=== PATIENT | female | born 1990 | race Caucasian/White ===

== ENCOUNTER 2019-01-10 12:36 | Emergency (ER) | payer MEDICAID ==
[~2019-01-10] VITALS: Ht 167.6 cm; Wt 53.5 kg
--- NOTE | 2019-01-10 12:36 | NUR ---
Patient BIBA BLS, transferred to bed 10. RN evaluating patient at bedside.
[2019-01-10 12:46] VITALS: BP 106/70
--- NOTE | 2019-01-10 13:10 | NUR ---
JACINTA C/O HAD SYNCOPE EPISODE WHILE AWAITING IN THE LINE IN [place]. PER LETTER OF CREDIT DOCUMENT EXAMINER, PT WAS PASSED OUT FOR ONE MINUTE AND WOKE UP ON THE FLOOR. PT DOES NOT REMEMBER WHETHER SHE HIT HER HEAD, BUT SHE REPORTS HAVING 12-WEEKS OF . A0. KELLI: 08/02/2019 PT DENIES HAVING ANY PAIN AT THIS TIME, BUT FEELS SHAKING. PT STATES HAVING TEMPORAL FAUST AT THIS TIME. PAIN LAEVEL 09/30. VSS; PATIENT POSITIONED FOR COMFORT; HOB ELEVATED; BEDRAILS UP X1; BED DOWN. ER MD MADE AWARE OF PT STATUS.
[2019-01-10] MEDS ORDERED: NACL 0.9% 1,000 ML IV SCH (13:51)
[2019-01-10 14:18] LABS: BASOPHILS % (AUTO) 0.3 % (0.0-2.0); EOSINOPHILS % (AUTO) 0.4 % (0.0-4.0); HEMATOCRIT 34.4 % (36-48); HEMOGLOBIN 11.4 g/dL (12.0-16.0); LYMPHOCYTES % (AUTO) 11.6 % (20.5-51.1); MEAN CORPUSCULAR HEMOGLOBIN 30 pg (27-31); MEAN CORPUSCULAR HGB CONC 33 g/dL (33-37); MEAN CORPUSCULAR VOLUME 89.3 fL (80-94); MONOCYTES # (AUTO) 0.5 K/uL (0.8-1.0); MONOCYTES % (AUTO) 5.8 % (1.7-9.3); NEUTROPHILS # (AUTO) 7.4 K/uL (1.8-7.7); NEUTROPHILS % (AUTO) 81.9 % (42.2-75.2); PLATELET COUNT (AUTO) 226 K/uL (140-450); RED BLOOD CELL COUNT(AUTO) 3.85 MIL/uL (4.20-5.40); RED CELL DISTRIBUTION WIDTH 16.8 % (11.6-13.7)
[2019-01-10 14:30] LABS: ANION GAP 16.5 (8-16); CARBON DIOXIDE 22.3 mmol/L (21-32); CREATININE 0.4 mg/dL (0.6-1.3); POTASSIUM 3.8 mmol/L (3.5-5.1)
--- NOTE | 2019-01-10 14:30 | NUR ---
PATIENT IS RESTING IN BED, STATED FEELING BETTER NOW, DENIES PAIN, VSS, IV BOLUS STARTED, WILL COTINUE TO MONITOR.
[2019-01-10 14:35] LABS: ALBUMIN 3.5 g/dL (3.4-5.0)
[2019-01-10 14:50] LABS: TOTAL BILIRUBIN 0.3 mg/dL (0.0-1.0)
--- NOTE | 2019-01-10 15:15 | NUR ---
BOLUS COMPLETED, PT STATED HUNGRY, SNAKES OFFERED, DENIES PAIN, AT BEDSIDE.
--- NOTE | 2019-01-10 16:00 | NUR ---
PT IS RESTING IN BED, NO S/S OF DISTRESS, AT BEDSIDE, DENIES PAIN, VSS.
[2019-01-10 17:00] VITALS: BP 112/72
--- NOTE | 2019-01-10 17:00 | NUR ---
Patient STATED FEELING BETTER READY TO BE DISCHARGE TO HOME. Written and verbal after care instructions given and explained. Rx of PYRIDOXINE given. Patient educated on indication of medication including possible reaction and side effects. All questions addressed prior to discharge. ID band removed. IV SITE REMOVED, Patient advised to follow up with PMD.
[2019-01-10 22:32] LABS: APPEARANCE,URINE CLEAR (CLEAR); BILIRUBIN,URINE NEGATIVE (NEGATIVE); BLOOD, URINE NEGATIVE (NEGATIVE); COLOR,URINE YELLOW (YELLOW); LEUKOCYTE ESTERASE ,URINE NEGATIVE (NEGATIVE); NITRITE, URINE NEGATIVE (NEGATIVE); UGLUCOSE NEGATIVE (NEGATIVE)
== END 2019-01-10 17:00 | disposition home or self-care (01) ==
LOC: MED 12:36
DX: O99.351 Diseases of the nervous system complicating pregnancy, first trimester (principal); R55 Syncope and collapse; R51 Headache; Z3A.10 10 weeks gestation of pregnancy
CPT/HCPCS: 36415; 76801; 80053; 81003; 81025; 82150; 83690; 84702; 85025; 93005; 96360; 99284; J7030; Q0092

== ENCOUNTER 2019-01-23 10:07 | Emergency (ER) | payer MEDICAID ==
[~2019-01-23] VITALS: Ht 170.2 cm; Wt 52.7 kg
--- NOTE | 2019-01-23 10:12 | NUR ---
Dr. Ramon evaluating patient in triage room.
[2019-01-23 10:14] VITALS: BP 117/9
--- NOTE | 2019-01-23 10:14 | NUR ---
Patient ambulated to bed 8. RN evaluating patient at bedside.
--- NOTE | 2019-01-23 10:17 | NUR ---
URINE CUP HANDED TO PT FOR SAMPLE
--- NOTE | 2019-01-23 10:22 | NUR ---
28 Y/O F PRESENTS TO ER C/O HEADACHE X 3 DAYS. PT IS 14 WEEKS . RECEIVING CARE. - VAGINAL BLEEDING +WHITE/YELLOWISH DISCHARGE. PT TOOK TYLENOL YESTERDAY AFTEROON WITHOUT ANY RELIEF. PAIN LEVEL 8/10, PULSATING. DENIES ANY CHANGES IN VISION. HOB ELEVATED, BED IN LOWEST POSITION, BED RAIL UP X1. WAITING FOR ERMD TO EVALUATE PT. ALLERGIES: NKA MED HX: NONE
[2019-01-23] MEDS ORDERED: NACL 0.9% 1,000 ML IV ONE ×2 (10:30→11:55)
--- NOTE | 2019-01-23 10:48 | NUR ---
PT STATES SHES FEELING NAUSEA. PT DID NOT TAKE ANY RX PRESCRIPTIONS FOR NAUSEA TODAY. CHASTITYD MADE AWARE.
[2019-01-23] MEDS ORDERED: ONDANSETRON 4 MG/2 ML VIAL IVP ONE (10:50)
[2019-01-23 10:53] LABS: BASOPHILS % (AUTO) 0.3 % (0.0-2.0); EOSINOPHILS % (AUTO) 0.3 % (0.0-4.0); HEMATOCRIT 37.4 % (36-48); HEMOGLOBIN 12.1 g/dL (12.0-16.0); LYMPHOCYTES # (AUTO) 1.4 K/uL (2.5-16.5); LYMPHOCYTES % (AUTO) 19.5 % (20.5-51.1); MEAN CORPUSCULAR HEMOGLOBIN 29 pg (27-31); MEAN CORPUSCULAR HGB CONC 32 g/dL (33-37); MEAN CORPUSCULAR VOLUME 88.6 fL (80-94); MONOCYTES # (AUTO) 0.4 K/uL (0.8-1.0); MONOCYTES % (AUTO) 5.1 % (1.7-9.3); NEUTROPHILS # (AUTO) 5.6 K/uL (1.8-7.7); NEUTROPHILS % (AUTO) 74.8 % (42.2-75.2); PLATELET COUNT (AUTO) 257 K/uL (140-450); RED BLOOD CELL COUNT(AUTO) 4.22 MIL/uL (4.20-5.40); RED CELL DISTRIBUTION WIDTH 16.3 % (11.6-13.7); WHITE BLOOD COUNT (AUTO) 7.4 K/uL (4.8-10.8)
--- NOTE | 2019-01-23 10:54 | NUR ---
Dr. Skinner is evaluating the patient at bedside.
[2019-01-23 10:59] LABS: ANION GAP 15.3 (8-16); CARBON DIOXIDE 25.3 mmol/L (21-32); CREATININE 0.5 mg/dL (0.6-1.3); POTASSIUM 3.6 mmol/L (3.5-5.1)
[2019-01-23 11:00] LABS: APPEARANCE,URINE CLEAR (CLEAR); BILIRUBIN,URINE NEGATIVE (NEGATIVE); BLOOD, URINE NEGATIVE (NEGATIVE); COLOR,URINE YELLOW (YELLOW); LEUKOCYTE ESTERASE ,URINE NEGATIVE (NEGATIVE); NITRITE, URINE NEGATIVE (NEGATIVE); UGLUCOSE NEGATIVE (NEGATIVE)
[2019-01-23 11:05] LABS: ALBUMIN 3.8 g/dL (3.4-5.0); TOTAL BILIRUBIN 0.3 mg/dL (0.0-1.0)
--- NOTE | 2019-01-23 11:50 | NUR ---
PT NAUSEA DECREASED. HEADACHE PAIN LEVEL STILL 8/10. DR. BRANDT MADE AWARE.
--- NOTE | 2019-01-23 11:53 | NUR ---
PT AMBULATED TO RESTROOM
[2019-01-23] MEDS ORDERED: ACETAMINOPHEN EXTRA STRENGTH 500 MG TAB PO ONE (11:55)
--- NOTE | 2019-01-23 12:38 | NUR ---
PT STATES PAIN RELIEF, PAIN LEVEL DECREASED TO LEVEL 6/10
--- NOTE | 2019-01-23 13:09 | NUR ---
PT AMBULATED TO RESTROOM
[2019-01-23 14:44] VITALS: BP 117/69
--- NOTE | 2019-01-23 14:44 | NUR ---
Patient discharged with v/s stable. Written and verbal after care instructions given and explained. Patient verbalized understanding. Ambulatory with steady gait. All questions addressed prior to discharge. Advised to follow up with PMD.
== END 2019-01-23 14:44 | disposition home or self-care (01) ==
LOC: MED 10:07
DX: R11.2 Nausea with vomiting, unspecified (principal); R51 Headache
CPT/HCPCS: 36415; 80053; 81003; 85025; 96361; 96374; 99283; J2405; J7030

== ENCOUNTER 2019-07-20 22:04 | Inpatient (IN) | payer MEDICAID ==
[~2019-07-20] VITALS: Ht 167.6 cm; Wt 68.0 kg
[2019-07-20] MEDS ORDERED: CARBOPROST 250 MCG/ML AMP IM PRN (22:55)
[2019-07-20] MEDS ORDERED: METHYLERGONOVINE 0.2 MG/ML AMP IM PRN (22:55)
[2019-07-20] MEDS ORDERED: PREN-380 PO (23:02)
[2019-07-20 23:22] LABS: BASOPHILS # (AUTO) 0.1 K/uL (0.00-0.22); BASOPHILS % (AUTO) 0.6 % (0.0-2.0); EOSINOPHILS # (AUTO) 0.1 K/uL (0-0.4); HEMATOCRIT 27.3 % (36-48); HEMOGLOBIN 8.4 g/dL (12.0-16.0); LYMPHOCYTES # (AUTO) 2.1 K/uL (2.5-16.5); LYMPHOCYTES % (AUTO) 23.2 % (20.5-51.1); MEAN CORPUSCULAR HEMOGLOBIN 22 pg (27-31); MEAN CORPUSCULAR HGB CONC 31 g/dL (33-37); MEAN CORPUSCULAR VOLUME 71.8 fL (80-94); MONOCYTES # (AUTO) 0.7 K/uL (0.8-1.0); MONOCYTES % (AUTO) 7.5 % (1.7-9.3); NEUTROPHILS # (AUTO) 6.2 K/uL (1.8-7.7); NEUTROPHILS % (AUTO) 67.7 % (42.2-75.2); PLATELET COUNT (AUTO) 216 K/uL (140-450); RED CELL DISTRIBUTION WIDTH 18.3 % (11.6-13.7); WHITE BLOOD COUNT (AUTO) 9.2 K/uL (4.8-10.8)
[2019-07-20 23:33] LABS: APPEARANCE,URINE CLEAR (CLEAR); BILIRUBIN,URINE NEGATIVE (NEGATIVE); BLOOD, URINE NEGATIVE (NEGATIVE); COLOR,URINE YELLOW (YELLOW); LEUKOCYTE ESTERASE ,URINE NEGATIVE (NEGATIVE); NITRITE, URINE NEGATIVE (NEGATIVE); UGLUCOSE NEGATIVE (NEGATIVE)
[2019-07-20 23:47] LABS: ANION GAP 13.8 (8-16); CARBON DIOXIDE 24.1 mmol/L (21-32); CREATININE 0.7 mg/dL (0.6-1.3); POTASSIUM 3.9 mmol/L (3.5-5.1); TOTAL BILIRUBIN 0.3 mg/dL (0.0-1.0)
[2019-07-20 23:56] LABS: RBC,URINE 0-5 /HPF (0-5); WBC,URINE 0-5 /HPF (0-5)
[2019-07-21] MEDS ORDERED: MISOPROSTOL 25 MCG TAB VG SCH (01:00)
[2019-07-21] MEDS ORDERED: MISOPROSTOL 25 MCG TAB ONE (01:11)
[2019-07-21] MEDS: LACTATED RINGERS 1,000 ML IV SCH ×3 (01:17→15:59)
[2019-07-21] MEDS ORDERED: MISOPROSTOL 25 MCG TAB VG PRN (07:30)
[2019-07-21] MEDS ORDERED: OXYTOCIN 20 UNITS in LACTATED RINGERS 1,000 ML IV SCH (09:00)
--- NOTE | 2019-07-21 09:50 | NUR ---
PATIENT HAS BEEN SCREENED AND CATEGORIZED LOW NUTRITION RISK. PATIENT WILL BE SEEN WITHIN 7 DAYS OF ADMISSION. 07/27/[address]
[2019-07-21] MEDS ORDERED: OXYTOCIN 20 UNITS/LR PREMIX 1,000 ML IV ONE (10:00)
[2019-07-21] MEDS ORDERED: ACETAMINOPHEN EXTRA STRENGTH 500 MG TAB ONE ×2 (13:04→19:36)
[2019-07-21] MEDS: ACETAMINOPHEN 325 MG TAB PO PRN ×2 (13:06→19:41)
[2019-07-22] MEDS: LACTATED RINGERS 1,000 ML IV SCH (00:19)
[2019-07-22] MEDS ORDERED: OXYTOCIN 20 UNITS/LR PREMIX 1,000 ML IV ONE (06:38)
[2019-07-22] MEDS ORDERED: ROPIVACAINE 0.2%/NS PREMIX 200 ML EPI ONE (12:45)
[2019-07-22] MEDS ORDERED: ROPIVACAINE 0.2%/NS PREMIX 200 ML EPI SCH (13:35)
[2019-07-22] MEDS ORDERED: ONDANSETRON 4 MG/2 ML VIAL ONE (21:17)
[2019-07-22] MEDS ORDERED: ONDANSETRON 4 MG/2 ML VIAL IVP SCH (23:41)
[2019-07-22] MEDS ORDERED: MEASLES, MUMPS, AND RUBELLA 1 VIAL SQVAC PRN (23:45)
[2019-07-22] MEDS ORDERED: OXYTOCIN 10 UNITS/ML VIAL IM PRN (23:45)
[2019-07-22] MEDS ORDERED: IBUPROFEN 800 MG TAB PO PRN (23:45)
[2019-07-22] MEDS ORDERED: BENZOCAINE/MENTHOL 20%-0.5% 60 GM CAN TP PRN (23:45)
[2019-07-22] MEDS ORDERED: METHYLERGONOVINE 0.2 MG/ML AMP IM PRN (23:45)
[2019-07-22] MEDS ORDERED: METHYLERGONOVINE 0.2 MG TAB PO PRN (23:45)
[2019-07-23 06:48] LABS: HEMATOCRIT 22.5 % (36-48)
[2019-07-23 07:13] LABS: HEMOGLOBIN 6.9 g/dL (12.0-16.0)
[2019-07-23] MEDS ORDERED: SODIUM FERRIC GLUCONATE 125 MG in NACL 0.9% 100 ML IV SCH (21:00)
== END 2019-07-24 16:25 | disposition home or self-care (01) | DRG 560 ==
LOC: MFCC 22:04
PROVIDERS: ADMIT Obstetrics & Gynecology; ATTEND Obstetrics & Gynecology
PROC: 3E0P7VZ Introduction of Hormone into Female Reproductive, Via Natural or Artificial Opening (ICD-10-PCS; 2019-07-21)
PROC: 10E0XZZ Delivery of Products of Conception, External Approach (ICD-10-PCS; principal; 2019-07-22)
PROC: 00HU33Z Insertion of Infusion Device into Spinal Canal, Percutaneous Approach (ICD-10-PCS; 2019-07-22)
PROC: 3E0R3BZ Introduction of Anesthetic Agent into Spinal Canal, Percutaneous Approach (ICD-10-PCS; 2019-07-22)
DX: O71.82 Other specified trauma to perineum and vulva (principal); D50.0 Iron deficiency anemia secondary to blood loss (chronic); O90.81 Anemia of the puerperium; Z37.0 Single live birth; Z3A.39 39 weeks gestation of pregnancy
CPT/HCPCS: 36415; 51702; 59200; 59409; 76815; 80053; 81001; 85018; 85025; 86592; 86886; 86900; 86901; 87086; J2210; J2405; J2590; J2795; J2916; J7120; Q0092